=== PATIENT | female | born 1945 | race Caucasian/White ===

== ENCOUNTER 2017-02-10 08:52 | Emergency (ER) | payer OTHER ==
[~2017-02-10] VITALS: Ht 162.6 cm; Wt 58.0 kg
[~2017-02-10 08:52] MED LIST: ACET500C5 PO; ALBU8.5H3 INH; CETI10CA PO; GUAI473L22 PO; METF500T4 PO
[2017-02-10 09:06] VITALS: Ht 162.6 cm; Wt 58.0 kg
[2017-02-10] MEDS ORDERED: GENT5DRO28 RIGHT EYE (10:52)
[2017-02-10] MEDS ORDERED: ACET500T98 PO (10:52)
[2017-02-10] MEDS ORDERED: CEPH-443 PO (10:52)
--- NOTE | 2017-02-10 10:54 | ERD ---
ER Documentation Chief Complaint Date/Time DATE: 02/10/17 TIME: 10:53 Chief Complaint RIGHT EYE REDNESS,PAIN HPI 71-year-old female presents with redness of the medial aspect of the right eye for last 2 days with some discharge. She denies visual changes. She has some mild pain in the area of the redness. Denies any trauma or contact lens use or visual changes per ROS All systems reviewed and are negative except as per history of present illness. Medications Home Meds Active Scripts Acetaminophen (Tylenol) 500 Mg Tab, 500 MG PO QID, #15 TAB Prov:ROSITA MANDEL MD 02/10/17 Gentamicin Sulfate* (Gentamicin Sulfate* Ophth) 0.3% - 5 Ml Drops, 1 DROP RIGHT EYE Q4 for 7 Days, EA Prov:ROSITA MANDEL MD 02/10/17 Cephalexin* (Keflex*) 500 Mg Capsule, 500 MG PO QID for 7 Days, CAP Prov:ROSITA MANDEL MD 02/10/17 Cetirizine Hcl* (Zyrtec*) 10 Mg Capsule, 10 MG PO DAILY, #30 TAB.CHEW Prov:TRACY DONALDSON NP 11/14/16 Acetaminophen* (Tylophen*) 500 Mg Capsule, 1 CAP PO Q6H Y for PAIN AND OR ELEVATED TEMP, #20 CAP Prov:TRACY DONALDSON NP 11/14/16 Guaifenesin-Codeine Phosphate* (Guaifenesin* AC Cough Syrup) 473 Ml Liquid, 5 ML PO Q4H Y for COUGH, #60 ML Prov:TRACY DONALDSON NP 11/14/16 Albuterol Sulfate* (Proair HFA*) 8.5 Gm Hfa.aer.ad, 2 PUFF INH Q4H Y for WHEEZING AND SOB, #1 INHALER Prov:TRACY DONALDSON NP 11/14/16 Reported Medications Metformin* (Glucophage*) Unknown Strength Tab, PO DAILY, #20 TAB 11/14/16 Allergies Allergies: Coded Allergies: No Known Allergy (Unverified , 11/14/16) PMhx/Soc History of Surgery: Yes (CHOLECYSTECTOMY) Anesthesia Reaction: No Hx Neurological Disorder: No Hx Respiratory Disorders: No Hx Cardiac Disorders: No Hx Psychiatric Problems: No Hx Miscellaneous Medical Probl: Yes (DM ) Hx Alcohol Use: No Hx Substance Use: No Hx Tobacco Use: No Smoking Status: Never smoker Physical Exam Vitals Vital Signs Date Time Temp Pulse Resp B/P Pulse Ox O2 Delivery O2 Flow Rate FiO2 02/10/17 09:06 98.0 71 18 146/65 98 Physical Exam Const: [] Alert, [id number], pleasant Head: Atraumatic Eyes: Normal Conjunctiva. Eyes are PERRLA and extraocular movements intact with some slight redness of the medial canthus in the area of the lacrimal duct. There is no significant erythema, induration, fluctuance, purulent discharge ENT: Normal External Ears, Nose and Mouth. Neck: Full range of motion..~ No meningismus. Resp: Clear to auscultation bilaterally Cardio: Regular rate and rhythm, no murmurs Abd: Soft, non tender, non distended. Normal bowel sounds Skin: No petechiae or rashes Back: No midline or flank tenderness Ext: No cyanosis, or edema Neur: Awake and alert Psych: Normal Mood and Affect Procedures/MDM Visual acuity shows no acute abnormalities. Patient has signs and symptoms of tachycardia cystitis. She will treated with Keflex and gentamicin ophthalmic solution. There is no evidence to suggest orbital cellulitis, threats to vision , retinal detachment, retinal artery ischemia, acute glaucoma. Patient was referred to ophthalmology for further evaluation or was advised to follow-up with primary doctor or return to the ER for new or worsening symptoms. Departure Diagnosis: Primary Impression: Dacrocystitis Laterality: right Qualified Code: H04.301 - Dacrocystitis, right Condition: Stable Patient Instructions: Dacrocystitis Referrals: [facility] [place] Hours: Mon - Fri 9:00 AM - 5:00 PM Additional Instructions: Cheque otro vez con jacques doctor primario en el proximo escoto or regresa para mas o nueva simptomas. ROSITA MANDEL MD Feb 10, 2017 10:54
== END 2017-02-10 11:34 | disposition home or self-care (01) ==
LOC: FTE 08:52
DX: H04.301 Unspecified dacryocystitis of right lacrimal passage (principal); E11.9 Type 2 diabetes mellitus without complications; Z79.84 Long term (current) use of oral hypoglycemic drugs
CPT/HCPCS: 99284

== ENCOUNTER 2017-10-28 09:07 | Emergency (ER) | payer SELFPAY ==
[~2017-10-28] VITALS: Ht 165.1 cm; Wt 54.4 kg
[~2017-10-28 09:07] MED LIST changes: +ACET500T98 PO; +CEPH-443 PO; +GENT5DRO28 RIGHT EYE
[2017-10-28 09:14] VITALS: Ht 165.1 cm; Wt 54.4 kg
[2017-10-28] MEDS ORDERED: ACETAMINOPHEN 500 MG TAB PO STA (09:42)
[2017-10-28 09:56] LABS: URINE BLOOD (Dip) POC Trace-intact (NEGATIVE)
--- NOTE | 2017-10-28 10:24 | RADRPT ---
PROCEDURE: CT Brain without contrast. CLINICAL INDICATION: Pain, headache TECHNIQUE: Routine CT scan of the brain was performed on a high resolution multi detector scanner without intravenous contrast. One or more of the following dose reduction techniques were used: Auto mated exposure control; Adjustment of the mA and/or kV according to patient size; Use of iterative r econstruction technique. CTDI = 44 mGy. DLP = 720 mGy-cm. DICOM images are available. COMPARISON: No prior relevant examinations are available for comparison. FINDINGS: Hemorrhage: No evidence of intracranial hemorrhage. Acute ischemic changes: No evidence of acute ischemic changes. Mass effect: None. Parenchymal volume: Within normal limits for age. Ventricular system: Concordant with parenchymal volume. Chronic changes: Mild chronic-appearing microvascular ischemic changes of the supratentorial white m atter. Atherosclerotic calcifications of the cavernous portions of both internal carotid arteries ar e present. Extracranial soft tissues: Unremarkable. Calvarium: No fractures. Paranasal sinuses: Visualized paranasal sinuses are clear. Mastoid air cells: Visualized mastoid air cells are clear. IMPRESSION: No acute intracranial abnormalities. Mild chronic-appearing microvascular ischemic changes of the supratentorial white matter. RPTAT: AADD .Nahum Valentino MD, MD Date Time Electronically viewed and signed by .Nahum Valentino MD, on 10/28/2017 10:23 .B/
[2017-10-28] MEDS ORDERED: ACET500C5 PO (11:13)
[2017-10-28] MEDS ORDERED: CEPH-443 PO (11:13)
--- NOTE | 2017-10-28 11:16 | ERD ---
ER Documentation Chief Complaint Chief Complaint Complains of a headache since last night HPI 9-year-old female presents with a 2 day history of headache. She points to the top and front of her head. Denies any history of trauma, fevers, sore throat, cough, recent illnesses. She denies any visual changes or vomiting. Denies any weakness or bowel bladder incontinence. ROS All systems reviewed and are negative except as per history of present illness. Medications Home Meds Active Scripts Cephalexin* (Keflex*) 500 Mg Capsule, 500 MG PO QID for 5 Days, CAP Prov:ROSITA MANDEL MD 10/28/17 Acetaminophen* (Tylophen*) 500 Mg Capsule, 1 CAP PO Q6H Y for PAIN AND OR ELEVATED TEMP, #20 CAP Prov:ROSITA MANDEL MD 10/28/17 Acetaminophen (Tylenol) 500 Mg Tab, 500 MG PO QID, #15 TAB Prov:ROSITA MANDEL MD 02/10/17 Gentamicin Sulfate* (Gentamicin Sulfate* Ophth) 0.3% - 5 Ml Drops, 1 DROP RIGHT EYE Q4 for 7 Days, EA Prov:ROSITA MANDEL MD 02/10/17 Cephalexin* (Keflex*) 500 Mg Capsule, 500 MG PO QID for 7 Days, CAP Prov:ROSITA MANDEL MD 02/10/17 Cetirizine Hcl* (Zyrtec*) 10 Mg Capsule, 10 MG PO DAILY, #30 TAB.CHEW Prov:TRACY DONALDSON NP 11/14/16 Acetaminophen* (Tylophen*) 500 Mg Capsule, 1 CAP PO Q6H Y for PAIN AND OR ELEVATED TEMP, #20 CAP Prov:TRACY DONALDSON NP 11/14/16 Guaifenesin-Codeine Phosphate* (Guaifenesin* AC Cough Syrup) 473 Ml Liquid, 5 ML PO Q4H Y for COUGH, #60 ML Prov:TRACY DONALDSON NP 11/14/16 Albuterol Sulfate* (Proair HFA*) 8.5 Gm Hfa.aer.ad, 2 PUFF INH Q4H Y for WHEEZING AND SOB, #1 INHALER Prov:TRACY DONALDSON NP 11/14/16 Reported Medications Metformin* (Glucophage*) Unknown Strength Tab, PO DAILY, #20 TAB 11/14/16 Allergies Allergies: Coded Allergies: No Known Allergy (Unverified , 11/14/16) PMhx/Soc History of Surgery: Yes (CHOLECYSTECTOMY) Anesthesia Reaction: No Hx Neurological Disorder: No Hx Respiratory Disorders: No Hx Cardiac Disorders: No Hx Psychiatric Problems: No Hx Miscellaneous Medical Probl: Yes (DM ) Hx Alcohol Use: No Hx Substance Use: No Hx Tobacco Use: No Smoking Status: Never smoker Physical Exam Vitals Vital Signs Date Time Temp Pulse Resp B/P Pulse Ox O2 Delivery O2 Flow Rate FiO2 10/28/17 09:14 97.4 81 20 126/65 98 Physical Exam Const: [] Alert, [id number]. Head: Atraumatic Eyes: Normal Conjunctiva. Eyes [place]. ENT: Normal External Ears, Nose and Mouth. Neck: Full range of motion..~ No meningismus. Resp: Clear to auscultation bilaterally Cardio: Regular rate and rhythm, no murmurs Abd: Soft, non tender, non distended. Normal bowel sounds Skin: No petechiae or rashes Back: No midline or flank tenderness Ext: No cyanosis, or edema Neur: Awake and alert. Normal gait. No appreciable focal neurologic deficits. Psych: Normal Mood and Affect Results 24 hrs Laboratory Tests Test 10/28/17 09:56 Bedside Urine pH (LAB) 5.5 Bedside Urine Protein (LAB) Negative Bedside Urine Glucose (UA) 0.50% Bedside Urine Ketones (LAB) Negative Bedside Urine Blood Trace-intact Bedside Urine Nitrite (LAB) Negative Bedside Urine Leukocyte Esterase (L Trace Current Medications Medications (Trade) Dose Ordered Sig/Leodan Route PRN Reason Start Time Stop Time Status Last Admin Dose Admin Acetaminophen (Tylenol Tab) 500 mg ONCE STAT PO 10/28/17 09:42 10/28/17 09:43 DC 10/28/17 09:49 Procedures/MDM Patient presents with headache of uncertain etiology for the last day. CT brain shows no acute findings. Urine shows trace leukocytes and glucose. Patient was given Tylenol for pain as well as Keflex 500 mg by mouth for UTI. Patient presents with headache of uncertain etiology without findings of internal bleeding, neurologic deficit, signs to suggest meningitis no evidence of additional acute abnormalities. Patient has signs of UTI which may or may not be related to her symptoms. She is is no signs of sepsis or acute abdomen or pyelonephritis. She will treated with Keflex and Tylenol, further observation at home, primary care follow-up and return precautions. The patient was stable with no new complaints during the ER course. Clinically, there is no current evidence to suggest meningitis, sepsis, acute abdomen, pneumonia, acute coronary syndrome, pulmonary embolism, or any other emergent condition appearing to require further evaluation or hospitalization. The patient should certainly return for any new or worsening symptoms per the aftercare instructions. They should otherwise follow-up with her primary care doctor for reevaluation this week. Departure Diagnosis: Primary Impression: UTI (urinary tract infection) Urinary tract infection type: acute cystitis Hematuria presence: without hematuria Qualified Code: N30.00 - Acute cystitis without hematuria Additional Impression: Headache Headache type: unspecified Headache chronicity pattern: unspecified pattern Intractability: not intractable Qualified Code: R51 - Nonintractable headache, unspecified chronicity pattern, unspecified headache type Condition: Stable Patient Instructions: Understanding Urinary Tract Infections (UTIs), Headache, Unspecified Additional Instructions: hay poquito infeccion en orina. ct normal. Cheque otro vez con jacques doctor primario en el proximo escoto or regresa para mas o nueva simptomas. ROSITA MANDEL MD Oct 28, 2017 11:16
[2017-10-28 11:45] VITALS: BP 153/67; PULSE 82; RESP 20; TEMP 98.3
== END 2017-10-28 11:45 | disposition home or self-care (01) ==
LOC: FTE 09:07
DX: N30.00 Acute cystitis without hematuria (principal); E11.9 Type 2 diabetes mellitus without complications; Z79.84 Long term (current) use of oral hypoglycemic drugs
CPT/HCPCS: 70450; 81003

== ENCOUNTER 2017-12-20 10:04 | Emergency (ER) | END 2017-12-20 13:58 | disposition home or self-care (01) ==